=== PATIENT | female | born 1940 | race Caucasian/White ===

== ENCOUNTER 2016-06-27 02:46 | Inpatient (IN) | payer MEDICARE, OTHER ==
[~2016-06-27] VITALS: Ht 165.1 cm; Wt 93.8 kg
[2016-06-27] VITALS (634 sets, daily range): BP systolic 134–414; BP diastolic 63–81; PULSE 66–93; TEMP 97.8–98.9; O2SAT 57–100
[~2016-06-27 02:46] MED LIST: ASTRAGALUS ROOT; BILBERRY60 MG PO; CO ENZYME Q-1050 MG; D MANNOSE PO; ELITE MAGNESIUM1 TAB PO; EPA FISH OIL1000 MG PO; ESTRACE0.1 MG/GM VG; MUCINEX 60600 MG/TA1; NATURAL E400 IU PO; PAPAYA ENZYMES; POTASSIUM99 MG PO; SYNTHROID0.05 MG/TA PO; TYLENOL 325MG325 MG PO; VIT B 100; VIT B-6100 MG PO; VIT C; VIT D 3; VIT E; VITAMIN B COMPL1 T16 PO; VITAMIN B1100 MG PO; VITAMIN C500 MG PO; [UNRECOGNIZED DRUG - OTHER]
[2016-06-27 02:58] LABS: BASO % 0.2 % (0.0-2.0); EOS % 0.4 % (0-4.0); GRAN # 7.6 (1.4-6.5); GRAN % 75.8 % (42.2-75.2); HEMATOCRIT 38.6 % (37.0-47.0); HEMOGLOBIN 12.7 g/dl (12.5-16.0); LYMPH # 1.7 (1.2-3.4); LYMPH % 16.9 % (20.0-51.0); MEAN CELL VOLUME 88 fl (80.0-100.0); MEAN CORPUSCULAR HEMOGLOBIN 29 pg (27.0-31.0); MEAN CORPUSCULAR HGB CONC 33 g/dl (33.0-37.0); MEAN PLATELET VOLUME 11.1 fl (7.4-10.4); MONO # 0.6 (0.1-0.6); MONO % 6.4 % (1.7-9.3); PLATELET COUNT 216 K/mm3 (130-400); REDCELL DISTRIBUTION WIDTH-CV 14.5 % (11.5-14.5)
[2016-06-27 03:02] LABS: INR 1.1 (0.8-3.0); PROTHROMBIN TIME 12.4 SECONDS (9.7-12.8)
[2016-06-27 03:05] LABS: PARTIAL THROMBOPLASTIN TIME 26.9 SECONDS (26.0-37.0)
[2016-06-27 03:08] LABS: ADJUSTED CALCIUM 9.5 mg/dL (8.4-10.2); ALANINE AMINOTRANSFERASE 30 U/L (9-52); ALBUMIN 4.3 gm/dL (3.5-5.0); ALKALINE PHOSPHATASE 87 U/L (50-136); ANION GAP 15 mmol/L (7-16); BILIRUBIN,TOTAL 0.8 mg/dL (0.0-1.0); BLOOD UREA NITROGEN 20 mg/dL (7-17); CALCIUM 9.7 mg/dL (8.4-10.2); CARBON DIOXIDE 23 mmol/L (22-30); CHLORIDE 103 mmol/L (98-107); CREATINE KINASE 72 U/L (30-135); CREATININE, serum 1.06 mg/dL (0.52-1.25); GLUCOSE 156 mg/dL (74-106); POTASSIUM 3.9 mmol/L (3.4-5.0); SODIUM 141 mmol/L (137-145)
[2016-06-27 03:19] LABS: TROPONIN-I < 0.012 ng/mL (0.000-0.034)
[2016-06-27 04:36] LABS: MAGNESIUM 2.1 mg/dL (1.6-2.3); PHOSPHOROUS 3.2 mg/dL (2.5-4.5)
[2016-06-27] MEDS ORDERED: ARMOUR THYROID30 MG PO (05:01)
[2016-06-27] MEDS ORDERED: NATURAL POTASS595 MG PO (05:04)
[2016-06-27 06:21] LABS: PH 7 (5-8); SQUAMOUS EPITHELIAL None Seen /hpf; URINE APPEARANCE Hazy; URINE BACTERIA Rare /hpf; URINE BILIRUBIN Negative (NEGATIVE); URINE BLOOD Negative (NEGATIVE); URINE COLOR Yellow; URINE GLUCOSE Negative (NEGATIVE); URINE KETONE Trace (NEGATIVE); URINE RBC 0-2 /hpf; URINE UROBILINOGEN Negative (NEGATIVE); URINE WBC 0-2 /hpf
[2016-06-28] VITALS (795 sets, daily range): BP systolic 138–172; BP diastolic 79–99; PULSE 60–94; TEMP 98–99.8; O2SAT 47–100
[2016-06-29] VITALS (201 sets, daily range): BP systolic 156–178; BP diastolic 62–91; PULSE 60–63; TEMP 97.7–99.2; O2SAT 72–100
[2016-06-30 01:05] VITALS: BP 161/68; PULSE 61; TEMP 98.2
[2016-06-30 05:34] VITALS: BP 161/71; PULSE 53; TEMP 97.7
[2016-06-30 08:29] VITALS: BP 139/63; PULSE 95; TEMP 97.6
[2016-06-30 12:04] VITALS: BP 145/66; PULSE 60; TEMP 97.8
[2016-06-30 17:16] VITALS: BP 141/67; PULSE 58; TEMP 98.2
[2016-06-30 20:50] VITALS: BP 136/62; PULSE 61; TEMP 99.2
[2016-07-01 01:31] VITALS: BP 123/80; PULSE 66; TEMP 99.4
[2016-07-01 05:33] VITALS: BP 140/57; PULSE 62; TEMP 97.6
[2016-07-01 08:27] LABS: CALCIUM 8.7 mg/dL (8.4-10.2); CREATININE, serum 0.89 mg/dL (0.52-1.25); MAGNESIUM 2.1 mg/dL (1.6-2.3)
[2016-07-01 09:15] VITALS: BP 115/92; PULSE 59; TEMP 97.7
[2016-07-01 12:20] VITALS: BP 132/62; PULSE 50; TEMP 97.4
[2016-07-01 16:25] VITALS: BP 142/87; PULSE 59; TEMP 97
[2016-07-01 20:46] VITALS: BP 136/64; PULSE 65; TEMP 97.4
[2016-07-02 00:53] VITALS: BP 134/62; PULSE 115; TEMP 97.4
[2016-07-02 05:36] VITALS: BP 145/70; PULSE 84; TEMP 97.5
[2016-07-02 07:55] VITALS: BP 141/60; PULSE 77; TEMP 98.5
[2016-07-02 11:39] VITALS: BP 151/57; PULSE 112; TEMP 98.9
[2016-07-02 14:59] VITALS: BP 140/83; PULSE 58; TEMP 97.9
[2016-07-02 21:00] VITALS: BP 157/69; PULSE 60; TEMP 98.2
[2016-07-03] VITALS (8 sets, daily range): BP systolic 146–180; BP diastolic 54–84; PULSE 58–107; TEMP 97.6–98.9
[2016-07-03] MEDS ORDERED: ASPIRIN 32325 MG/TAB PO (09:14)
[2016-07-03] MEDS ORDERED: TYLENOL 325MG325 MG PO (09:14)
[2016-07-03] MEDS ORDERED: LIPITOR 10MG10 MG PO (09:14)
[2016-07-03] MEDS ORDERED: PRINIVIL5 MG PO (12:57)
[2016-07-04 03:51] VITALS: BP 126/87; PULSE 106; TEMP 98.7
[2016-07-04 09:00] VITALS: BP 162/91; PULSE 80; TEMP 98
[2016-07-04 12:25] VITALS: BP 150/64; PULSE 56; TEMP 98.3
[2016-07-04 14:15] VITALS: BP 164/84; PULSE 61; TEMP 98.7
== END 2016-07-04 15:30 | DRG 65 ==
LOC: COL.ER 02:46 → IMCU 03:52 → MEDICAL 03:52
PROVIDERS: Emergency Medicine; Internal Medicine; Nurse Practitioner Family
DX: I63.411 Cerebral infarction due to embolism of right middle cerebral artery (principal); G81.94 Hemiplegia, unspecified affecting left nondominant side; Z66 Do not resuscitate; R29.810 Facial weakness; I10 Essential (primary) hypertension; I25.10 Atherosclerotic heart disease of native coronary artery without angina pectoris; Z95.1 Presence of aortocoronary bypass graft; Z95.0 Presence of cardiac pacemaker; M79.7 Fibromyalgia; I48.2 Chronic atrial fibrillation
CPT/HCPCS: 99223-AI; 99232-AI; 99233-AI; 99239; A4315; J2405; J7030

== ENCOUNTER → 2016-07-06 | Outpatient (CLI) | payer MEDICARE, OTHER ==
[~2016-07-06] MED LIST changes: +ADVIL LIQUI-GE200 MG PO; +ARMOUR THYROID30 MG PO; +ASPIRIN 32325 MG/TAB PO; +KEPPRA 500MG500 MG PO; +LIPITOR 10MG10 MG PO; +NATURAL POTASS595 MG PO; +NEXIUM 20MG20 MG PO; +PAPAYA ENZYME1 TA1 PO; +PRINIVIL5 MG PO; +THE MEDICINE S200 M2 PO
== END ==
LOC: COL.RAD 12:49
DX: J18.8 Other pneumonia, unspecified organism (principal); I51.7 Cardiomegaly; Z95.1 Presence of aortocoronary bypass graft; Z95.0 Presence of cardiac pacemaker; R06.2 Wheezing

== ENCOUNTER → 2016-07-20 | Outpatient (CLI) | payer MEDICARE, OTHER | LOC: COL.RAD 13:30 | DX: J18.1 Lobar pneumonia, unspecified organism (principal); I51.7 Cardiomegaly ==

== ENCOUNTER → 2016-09-05 | Outpatient (CLI) | payer MEDICARE, OTHER | LOC: COL.RAD 13:52 | DX: M25.512 Pain in left shoulder (principal); S43.032A Inferior subluxation of left humerus, initial encounter ==

== ENCOUNTER 2016-12-25 23:30 | Emergency (ER) | payer MEDICARE, OTHER ==
[~2016-12-25] VITALS: Ht 165.1 cm; Wt 63.6 kg
[~2016-12-25 23:30] MED LIST changes: -ADVIL LIQUI-GE200 MG PO; -KEPPRA 500MG500 MG PO; -NEXIUM 20MG20 MG PO; -PAPAYA ENZYME1 TA1 PO; -THE MEDICINE S200 M2 PO
[2016-12-25 23:31] VITALS: TEMP 96.8
[2016-12-25] MEDS ORDERED: NEXIUM 20MG20 MG PO (23:53)
[2016-12-25] MEDS ORDERED: ADVIL LIQUI-GE200 MG PO (23:53)
[2016-12-25] MEDS ORDERED: VITAMIN C500 MG PO (23:57)
[2016-12-25] MEDS ORDERED: THE MEDICINE S200 M2 PO (23:57)
[2016-12-25] MEDS ORDERED: PAPAYA ENZYME1 TA1 PO (23:58)
[2016-12-26 00:12] LABS: ADJUSTED CALCIUM 9.6 mg/dL (8.4-10.2); BILIRUBIN,TOTAL 0.5 mg/dL (0.0-1.0); CALCIUM 9.6 mg/dL (8.4-10.2); CREATININE, serum 1.2 mg/dL (0.52-1.25); POTASSIUM 3.8 mmol/L (3.4-5.0); TOTAL PROTEIN 7.2 gm/dL (6.4-8.2)
[2016-12-26 00:28] LABS: PROLACTIN 83.9 ng/mL (3.0-18.6)
[2016-12-26 02:06] LABS: BASO % 0.4 % (0.0-2.0); EOS # 0.4 (0.0-0.7); GRAN # 2.8 (1.4-6.5); GRAN % 38.5 % (42.2-75.2); HEMATOCRIT 38.4 % (37.0-47.0); HEMOGLOBIN 12.7 g/dl (12.5-16.0); LYMPH # 3.4 (1.2-3.4); LYMPH % 46.9 % (20.0-51.0); MEAN CELL VOLUME 88 fl (80.0-100.0); MEAN CORPUSCULAR HEMOGLOBIN 29 pg (27.0-31.0); MEAN CORPUSCULAR HGB CONC 33 g/dl (33.0-37.0); MEAN PLATELET VOLUME 11.3 fl (7.4-10.4); MONO # 0.6 (0.1-0.6); MONO % 7.9 % (1.7-9.3); PLATELET COUNT 235 K/mm3 (130-400); RED BLOOD COUNT 4.38 M/mm3 (4.10-5.30); WHITE BLOOD COUNT 7.3 K/mm3 (4.8-10.8)
[2016-12-26] MEDS ORDERED: KEPPRA 500MG500 MG PO (03:12)
[2016-12-26 08:20] LABS: COLLECTION METHOD CLEAN CATCH
[2016-12-26 08:40] VITALS: BP 137/87; PULSE 102
[2016-12-26 08:46] LABS: MUCOUS Present /lpf; PH 5 (5-8); SQUAMOUS EPITHELIAL 0-2 /hpf; URINE APPEARANCE Clear; URINE BACTERIA None Seen /hpf; URINE BILIRUBIN Negative (NEGATIVE); URINE BLOOD Negative (NEGATIVE); URINE COLOR Yellow; URINE GLUCOSE Negative (NEGATIVE); URINE KETONE Negative (NEGATIVE); URINE LEUKOCYTE ESTERASE Negative (NEGATIVE); URINE PROTEIN(semi-quant) Negative (NEGATIVE); URINE RBC 0-2 /hpf; URINE UROBILINOGEN Negative (NEGATIVE)
== END 2016-12-26 08:45 | disposition home or self-care (01) ==
LOC: COL.ER 23:30
PROVIDERS: Emergency Medicine
DX: R56.9 Unspecified convulsions (principal); G40.909 Epilepsy, unspecified, not intractable, without status epilepticus; Z86.73 Personal history of transient ischemic attack (TIA), and cerebral infarction without residual deficits; Z86.69 Personal history of other diseases of the nervous system and sense organs
CPT/HCPCS: J1885; J1953; J7030

== ENCOUNTER 2017-11-14 14:45 | Outpatient (RCR) | payer MEDICARE, OTHER ==
[~2017-11-14 14:45] MED LIST changes: +ADVIL LIQUI-GE200 MG PO; +KEPPRA 500MG500 MG PO; +NEXIUM 20MG20 MG PO; +PAPAYA ENZYME1 TA1 PO; +THE MEDICINE S200 M2 PO
== END 2017-11-15 | disposition home or self-care (01) ==
LOC: MKS.ESL.OT
DX: I69.954 Hemiplegia and hemiparesis following unspecified cerebrovascular disease affecting left non-dominant side (principal); I65.21 Occlusion and stenosis of right carotid artery; I48.91 Unspecified atrial fibrillation
CPT/HCPCS: G8978-GP; G8979-GP; G8984-GO; G8985-GO

== ENCOUNTER 2018-01-18 15:15 | Outpatient (RCR) | payer MEDICARE, OTHER | END 2018-01-21 13:45 | disposition home or self-care (01) | LOC: MKS.ESL.OT 15:15 | DX: I69.354 Hemiplegia and hemiparesis following cerebral infarction affecting left non-dominant side (principal); I48.91 Unspecified atrial fibrillation; I65.21 Occlusion and stenosis of right carotid artery | CPT/HCPCS: G8978-GP; G8979-GP; G8980-GP; G8984-GO; G8985-GO ==

== ENCOUNTER → 2018-02-12 | Outpatient (CLI) | payer MEDICARE, OTHER | LOC: COL.RAD 09:48 | DX: I63.9 Cerebral infarction, unspecified (principal); G31.9 Degenerative disease of nervous system, unspecified; I67.82 Cerebral ischemia; I63.59 Cerebral infarction due to unspecified occlusion or stenosis of other cerebral artery ==

== ENCOUNTER 2018-07-17 11:15 | Outpatient (RCR) | payer MEDICARE, OTHER | END 2018-07-18 | disposition home or self-care (01) | LOC: MKS.ESL.OT | DX: I69.354 Hemiplegia and hemiparesis following cerebral infarction affecting left non-dominant side (principal); Z98.890 Other specified postprocedural states; Z95.0 Presence of cardiac pacemaker; Z95.1 Presence of aortocoronary bypass graft ==

== ENCOUNTER 2018-09-04 10:30 | Outpatient (RCR) | payer MEDICARE, OTHER ==
[~2018-09-04 10:30] MED LIST changes: +ASPIRIN 81M81 MG/TA2 PO; +BALANCE B-1001 TA1 PO; +CITRUCEL WITH500 MG PO; +CLARITIN 1010 MG/TAB PO; +ELIQUIS 5MG PO; -ELITE MAGNESIUM1 TAB PO; +LASIX 20MG TABL20 MG PO; +LUTEIN 15 MG-0.1 SGL PO; +MAG-OX 400400 MG/TAB PO; +METROGEL GEL45 GM TP; +NUEDEXTA 20 MG-1 CAP PO; +ROBAXIN 50500 MG/TAB PO; +TIAZAC240 MG PO; -VIT D 3; +VITAMIND3 5000 PO; +ZEBETA 5MG5 MG PO; +[UNRECOGNIZED DRUG - OTHER] NS
== END 2018-09-11 09:08 | disposition home or self-care (01) ==
LOC: MKS.ESL.PT 10:30
DX: I69.354 Hemiplegia and hemiparesis following cerebral infarction affecting left non-dominant side (principal)

== ENCOUNTER 2018-10-01 16:53 | Inpatient (IN) | payer MEDICARE, OTHER ==
[~2018-10-01] VITALS: Ht 165.1 cm; Wt 78.8 kg
[2018-10-01] MEDS ORDERED: TYLENOL PM EXTR1 TA1 PO (18:22)
[2018-10-01] MEDS ORDERED: ROBITUSSIN DM 105 ML PO (18:23)
[2018-10-01] MEDS ORDERED: NYSTATIN CREAM15 GM TP (18:24)
[2018-10-01] MEDS ORDERED: ZOFRAN 4MG T4 MG/TAB PO (18:25)
[2018-10-01] MEDS ORDERED: ALDACTONE 25MG25 M1 PO (18:26)
[2018-10-01 18:29] LABS: BASO % 0.2 % (0.0-2.0); EOS % 0.5 % (0-4.0); GRAN # 3.6 (1.4-6.5); GRAN % 59.7 % (42.2-75.2); INR 2.3 (0.8-3.0); LYMPH # 1.5 (1.2-3.4); LYMPH % 25.9 % (20.0-51.0); MEAN CELL VOLUME 72 fl (80.0-100.0); MEAN CORPUSCULAR HGB CONC 29 g/dl (33.0-37.0); MONO # 0.8 (0.1-0.6); MONO % 13.4 % (1.7-9.3); PLATELET COUNT 293 K/mm3 (130-400); PROTHROMBIN TIME 27.1 SECONDS (9.7-12.8); REDCELL DISTRIBUTION WIDTH-CV 22.9 % (11.5-14.5)
[2018-10-01 18:31] LABS: HEMATOCRIT 25.2 % (37.0-47.0); HEMOGLOBIN 7.4 g/dl (12.5-16.0); MEAN CORPUSCULAR HEMOGLOBIN 21 pg (27.0-31.0)
--- NOTE | 2018-10-01 18:50 | NUR ---
Patient to room 311 by wheelchair. Patient A&Ox3. Oriented patient to room, bed and call light. at the bedside. Assessment complete. IV CDI. No further needs expressed from patient. Call light within reach
--- NOTE | 2018-10-01 19:13 | NUR ---
Patient resting in bed, at the bedside. Denies pain, reports discomfort at rectum. States she feels that a ball is under her, nurses assessed rectum and saw no mass. Patient encouraged to shift position to take weight off buttucks. Nurses also asked if patient needed to have a BM, patient stated that she did not. IV CDI. Patients brief changed and repositioned for comfort. Dinner ordered. No further needs expressed from patient. Call light and bed alarm on.
[2018-10-01 19:31] LABS: ALBUMIN 3.4 gm/dL (3.5-5.0); BILIRUBIN,TOTAL 1.8 mg/dL (0.0-1.0); CALCIUM 8.8 mg/dL (8.4-10.2); CREATININE, serum 0.83 (0.52-1.25); MAGNESIUM 2.2 mg/dL (1.6-2.3); PHOSPHOROUS 3.2 mg/dL (2.5-4.5); POTASSIUM 3.6 mmol/L (3.4-5.0); TOTAL PROTEIN 6.5 gm/dL (6.4-8.2)
[2018-10-01 20:01] LABS: TSH w REFLEX 3.21 uIU/mL (0.465-4.680)
[2018-10-01 21:42] VITALS: BP 130/47; PULSE 59; TEMP 98.3
--- NOTE | 2018-10-01 22:00 | NUR ---
Shift assessment complete. Patient in bed. Repositioned per pt request. Denies pain. 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 Patient refusing lasix IV, notified TAMERA Melgar. Patient c/o nausea, prn zofran given. Denies further needs at this time. Will continue to monitor.
[2018-10-01 22:23] LABS: BILIRUBIN,DIRECT 0.9 mg/dL (0.0-0.4)
[2018-10-02] VITALS (13 sets, daily range): BP systolic 117–151; BP diastolic 40–83; PULSE 59–77; TEMP 97.9–98.6
[2018-10-02 06:16] LABS: BASO % 0.2 % (0.0-2.0); EOS # 0.1 (0.0-0.7); EOS % 1.2 % (0-4.0); GRAN # 2.8 (1.4-6.5); GRAN % 56.3 % (42.2-75.2); LYMPH # 1.6 (1.2-3.4); LYMPH % 31.6 % (20.0-51.0); MEAN CELL VOLUME 73 fl (80.0-100.0); MEAN CORPUSCULAR HGB CONC 28 g/dl (33.0-37.0); MEAN PLATELET VOLUME 11.9 fl (7.4-10.4); MONO # 0.5 (0.1-0.6); MONO % 10.5 % (1.7-9.3); PLATELET COUNT 263 K/mm3 (130-400); RED BLOOD COUNT 3.02 M/mm3 (4.10-5.30)
[2018-10-02 07:07] LABS: HEMATOCRIT 21.9 % (37.0-47.0); HEMOGLOBIN 6.2 g/dl (12.5-16.0); MEAN CORPUSCULAR HEMOGLOBIN 21 pg (27.0-31.0)
[2018-10-02 07:22] LABS: ALBUMIN 2.8 gm/dL (3.5-5.0); BILIRUBIN,TOTAL 1.5 mg/dL (0.0-1.0); CALCIUM 8.6 mg/dL (8.4-10.2); CREATININE, serum 0.78 (0.52-1.25); POTASSIUM 3.6 mmol/L (3.4-5.0); TOTAL PROTEIN 5.7 gm/dL (6.4-8.2)
--- NOTE | 2018-10-02 13:43 | NUR ---
Initial visit; Patient having issues and needed a nurse but was receptive to spiritual care and having Direct Mail Clerk contact her [employer] Operator to let her know that Paul is hospitalized and call her nurse to let her know of her immediate needs.
--- NOTE | 2018-10-02 13:51 | NUR ---
AMANDO met with patient and to discuss discharge planning. Patient's PCP is Dr Saunders and she obtains prescriptions from [facility]. Patient uses a transport chair for mobility but she also has a carlos walker. Patient reports she has an aid but no PT or OT. Patient does have a DPOA. Patient will be seen by PT and OT. AMANDO will continue to follow.
--- NOTE | 2018-10-02 18:00 | NUR ---
PT HAD NO COMPLICATIONS WITH BLOOD TRANSFUSION. STAYED WITH PATIENT FOR FIRST 15 MINS. NO S/S ADVERSE REACTIONS.
--- NOTE | 2018-10-02 19:30 | NUR ---
PT HAD TRAS-VAGINAL ULTRASOUND TODAY, ECHO THIS MORNING, BLOOD ADMINSTIRATION THIS AFTERNOON. PT RECIEVED 2 DOSES OF IV LASIX THIS SHIFT, ONE PRIOR TO BLOOD TRANSFUSION AND ONE AFTER. PT TOLERATED PROCEDURES WELL. HAS HAD FREQUENT VOIDING. OCCULT STOOL SAMPLE STILL PENDING DUE TO NO STOOLS. PT HAD SLIGHT BLEEDING WITH WIPING NOTED BUT VERY SCANT AMOUNT. PT HAD SOME ITCHING AROUND THE TIME OF FIRST ADMISTERATION OF IV LASIX, THIS NURSE ADMINISTERED A BENADRYL. PT HAD IN TO VISIT THROUGHOUT THE DAY.
[2018-10-02 20:27] LABS: HEMATOCRIT 27.6 % (37.0-47.0); HEMOGLOBIN 8.2 g/dl (12.5-16.0)
--- NOTE | 2018-10-02 20:30 | NUR ---
Initial shift assessment done- States is overall feeling better tonight after the unit of blood- hgb up to 8.2 at this time, Tele on, VSS, left arm flaccid, contracture, has left facial droop, left leg weak- previous stroke HX- using bedpan to void- uses call light appropriately
[2018-10-03] VITALS (8 sets, daily range): BP systolic 94–141; BP diastolic 36–74; PULSE 59–125; TEMP 97.6–98.3
--- NOTE | 2018-10-03 06:08 | NUR ---
Quiet night- has been sleeping well, using bedpan-bed changed this morning. Tele on, scd,s on this morning, VSS
[2018-10-03 06:12] LABS: BASO % 0.3 % (0.0-2.0); EOS # 0.2 (0.0-0.7); EOS % 2.8 % (0-4.0); GRAN # 3.6 (1.4-6.5); GRAN % 63.2 % (42.2-75.2); LYMPH # 1.4 (1.2-3.4); MEAN CELL VOLUME 74 fl (80.0-100.0); MEAN CORPUSCULAR HGB CONC 29 g/dl (33.0-37.0); MEAN PLATELET VOLUME 11.6 fl (7.4-10.4); MONO # 0.5 (0.1-0.6); MONO % 8.5 % (1.7-9.3); PLATELET COUNT 251 K/mm3 (130-400); REDCELL DISTRIBUTION WIDTH-CV 22.9 % (11.5-14.5)
[2018-10-03 06:22] LABS: HEMATOCRIT 26.5 % (37.0-47.0); HEMOGLOBIN 7.6 g/dl (12.5-16.0); MEAN CORPUSCULAR HEMOGLOBIN 21 pg (27.0-31.0)
[2018-10-03 06:31] LABS: ALBUMIN 3.2 gm/dL (3.5-5.0); BILIRUBIN,TOTAL 2.2 mg/dL (0.0-1.0); CALCIUM 8.5 mg/dL (8.4-10.2); CREATININE, serum 0.87 (0.52-1.25); TOTAL PROTEIN 6.4 gm/dL (6.4-8.2)
[2018-10-03 06:40] LABS: POTASSIUM 2.9 mmol/L (3.4-5.0)
[2018-10-03 11:39] LABS: RED BLOOD COUNT 3.58 M/mm3 (4.10-5.30)
[2018-10-03 16:13] LABS: HEMATOCRIT 26.7 % (37.0-47.0); HEMOGLOBIN 7.8 g/dl (12.5-16.0)
--- NOTE | 2018-10-03 19:25 | NUR ---
PT HAS BEEN DRINKING JUICE WITH POTASSIUM THROUGHOUT THE DAY TODAY PER REPLACEMENT PROTOCOL, AND AT THIS TIME HAS ONE DOSE LEFT. PT IS CURRENTLY DRINKING BOWEL PREP PT ALLERGIC TO THE [facility] IN [facility] AND IS UNABLE TO HAVE IT, DR. ZACARIAS NOTIFIED AND STATED THAT PT IS ABLE TO DRINK THE MIRALAX WITH SPRITE, APPLE JUICE AND IS ABLE TO HAVE GOLYTLE IF DESIRED. THIS DISCUSSED WITH PT AND PT AND DECIDED TO HAVE THE MIRALAX WITH SPRITE. PT WORKING IN DRINKING THIS, BIOLOGY ADJUNCT INSTRUCTOR NURSE INSTRUCTED ON ALL THIS WELL. PT STARTING TO HAVE STOOLS AT THIS TIME AND HAD SOME NOTED NAUSEA INITAILLY AND RECIEVED PRN DOSE OF ZOFRAN. NO NAUSEA NOTED AFTERWARD. PT HAS BEEN PLEASENT AND COOPERATIVE WITH CARES. NEW MED ORDERS FOR LISINOPRIL AND PO LASIX GIVEN TODAY. HGB REAMINED ABOVE 7 THIS SHIFT, LAST LEVEL WAS 7.8, PT AND PT INFORMED ON LAST LEVEL. NO ISSUES OR CONSERNS VOICED THIS NURSE EDUCATED PT AND FAMILY ON BOWEL PREP NEEDED, QUESTIONS ANSWERED APPROPITALY. HEMOCULT SAMPLE SENT TO LAB THIS SHIFT, RESULTED NEG.
--- NOTE | 2018-10-03 20:15 | NUR ---
Patient assessed at this time. Denies having pain and discomfort. Did have nausea earlier, but denies at this time. Encouraged to drink bowel prep. Continues to only take small sips at a time. Peripheral IV to left wrist flushed. Site is without redness, warmth, swelling, and pain. LS CTA. Respirations even and unlabored. Denies SOB and dyspnea. HRR. BSAx4. Abdomen soft and non-tender. Assisted to bedside commode with two assist. Able to void and have a BM. BM was small, yellow and liquid with some formed content present. Assisted back to bed as requested. Some redness to bottom present. Blanchable and intact. Voices no questions, needs, or concerns at this time. Call light is within reach.
[2018-10-04] VITALS (10 sets, daily range): BP systolic 109–130; BP diastolic 37–58; PULSE 58–63; TEMP 97.4–98.9
--- NOTE | 2018-10-04 03:02 | NUR ---
Around 2300, patient had only drank about 350 mls of her bowel prep. Stated that she did not like that it was mixed in sprite, and requested that it be mixed in water instead. customer facilities supervisor bob up more miralax for patient, and this nurse mixed it with water for patient. Has drank about 350 mls since then. Only drinking a few sips at a time. Continue to encourage patient to drink more, but states that she just cant drink very much. Has had a few loose stools, but not fully liquid yet. Will continue to encourage to drink all of bowel prep. All other fluids taken away from patient, and reminded patient that she is NPO after midnight except for the bowel prep, and voiced understanding. Resting in bed with eyes closed at this time. Call light is within reach.
--- NOTE | 2018-10-04 03:33 | NUR ---
This nurse continues to encourage patient to drink bowel prep. Did not want to sign consent for procedures until was present. Stated that she thought she was going to be able to drink the bowel prep without any problems, but was having some nausea. Given PRN Zofran at this time. Voices no other questions, needs, or concerns at this time. Call light is within reach.
--- NOTE | 2018-10-04 06:15 | NUR ---
Patient has been drinking bowel prep. Has approximately 600 mls to drink left. Currently sitting on commode drinking bowel prep as requested. Voices no questions, needs, or concerns at this time. Call light is within reach.
--- NOTE | 2018-10-04 07:50 | NUR ---
Report given to day shift nurse.
[2018-10-04 07:55] LABS: BASO % 0.3 % (0.0-2.0); EOS # 0.2 (0.0-0.7); EOS % 2.2 % (0-4.0); GRAN # 5.5 (1.4-6.5); GRAN % 71.7 % (42.2-75.2); LYMPH # 1.4 (1.2-3.4); LYMPH % 18.2 % (20.0-51.0); MEAN CELL VOLUME 71 fl (80.0-100.0); MEAN CORPUSCULAR HGB CONC 30 g/dl (33.0-37.0); MONO # 0.6 (0.1-0.6); MONO % 7.2 % (1.7-9.3); PLATELET COUNT 294 K/mm3 (130-400); RED BLOOD COUNT 4.13 M/mm3 (4.10-5.30); REDCELL DISTRIBUTION WIDTH-CV 23.9 % (11.5-14.5)
[2018-10-04 08:00] LABS: HEMATOCRIT 29.4 % (37.0-47.0); HEMOGLOBIN 8.8 g/dl (12.5-16.0); MEAN CORPUSCULAR HEMOGLOBIN 21 pg (27.0-31.0)
--- NOTE | 2018-10-04 08:05 | NUR ---
Pt up to commode, finished last cup of prep. Medications given with small sips of water. Pt is flaccid on left side and needs two assist. Denies any pain, just tired. Completed morning assessment. Breath sounds clear. Denies shortness of breath. Bottom is red, intact and blanches. Procedure will be today at 1020
[2018-10-04 08:07] LABS: ALBUMIN 3.5 gm/dL (3.5-5.0); BILIRUBIN,TOTAL 1.5 mg/dL (0.0-1.0); CALCIUM 9.2 mg/dL (8.4-10.2); CREATININE, serum 0.93 (0.52-1.25); POTASSIUM 3.3 mmol/L (3.4-5.0)
--- NOTE | 2018-10-04 09:00 | NUR ---
Consent for procedure signed, LR hanging in room.
--- NOTE | 2018-10-04 11:00 | NUR ---
pt back on floor from procedure. Post op vitals started. Pt changed and put on bedpan. Denies any other needs at this time. Will contiue to monitor. Call light in reach.
--- NOTE | 2018-10-04 12:04 | NUR ---
Called Dr. Carlson, he requested labs faxed, Sent fax
[2018-10-04 14:00] LABS: INR 1.4 (0.8-3.0); PROTHROMBIN TIME 16.6 SECONDS (9.7-12.8)
--- NOTE | 2018-10-04 14:30 | NUR ---
Pt taken down for thoracentesis.
--- NOTE | 2018-10-04 15:30 | NUR ---
Pt back in room from thoracentesis. ASking about being able to eat, called Ev and called diet order.
[2018-10-04 15:50] LABS: GLUCOSE,PLEURAL FLUID 84 mg/dL; TOTAL PROTEIN,PLEURAL FLUID 2.4 gm/dL
--- NOTE | 2018-10-04 16:46 | NUR ---
PT LYING IN BED, DENIES ANY PAIN AT THIS TIME. BREATHING EVEN AND UNLABORED. CURRENTLY RECEIVED POTASSIUM IV WITH NO COMPLAINTS. WILL CONTINUE TO MONITOR.
--- NOTE | 2018-10-04 18:00 | NUR ---
PT LYING IN BED, IV SITE EXPIRES TONIGHT. JASON POST TRIED TO GET A NEW IV AND WAS UNSUCCESSFUL. WILL WAIT UNTIL THE PLAN FOR D/C IS MADE TOMORROW AND WILL TRY AGAIN.
--- NOTE | 2018-10-04 19:00 | NUR ---
Report given to Jackie POST. PT denies any needs at this time. K+ still running.
--- NOTE | 2018-10-04 19:56 | NUR ---
PT IN BED WITH HOB ELEVATED TO 30 DEGREE ANGLE. PT DENIES PAIN OR DISCOMFORT, HAS LEFT SIDED WEAKNESS FROM PREVIOUS CVA. NO NEEDS AT THIS TIME, CALL LIGHT WITHIN REACH.
--- NOTE | 2018-10-05 02:13 | NUR ---
UNEVENTFUL NIGHT, PT SLEEPING/RESTING WELL WITH NO S/S OF PAIN OR DISCOMFORT NOTED. CALL LIGHT WITHIN REACH.
[2018-10-05 04:08] VITALS: BP 109/44; PULSE 57; TEMP 98.1
--- NOTE | 2018-10-05 07:04 | NUR ---
PT ASSISTED ONTO BEDPAN AT ABOUT 0600 AND WAS CHANGED, [facility] PERFORMED. PT DENIED ANY PAIN OR DISCOMFORT AN NO FURTHER NEEDS. CALL LIGHT WITHIN REACH. REPORT GIVEN TO ADORE POST.
[2018-10-05 08:03] VITALS: BP 117/36; PULSE 60; TEMP 98.3
--- NOTE | 2018-10-05 08:30 | NUR ---
Pt sitting up in bed eating breakfast. Denies any pain or shortness of breath. Stated she finally slept well and was able to sleep on her back. Completed morning assessment. Breathing even and unlabored, breath sounds clear. Morning meds taken one at a time with water, pt able to tolerate well. INT to LF flushes well, dressing is CDI. Left hand has small contracture and brace on left leg. Denies any needs currently, call light in reach and at bedside.
[2018-10-05 11:22] VITALS: BP 100/39; PULSE 59; TEMP 98
--- NOTE | 2018-10-05 12:59 | NUR ---
Patient reports having [facility] coming to the home.
--- NOTE | 2018-10-05 13:24 | NUR ---
Pt sitting in chair, waiting for lunch. Denies any pain or shortness of breath. Requesting for someone to take her outside. Will follow up with aid.
--- NOTE | 2018-10-05 15:15 | NUR ---
PT UP TO WHEELCHAIR, FAMILY TAKING PT AROUND THE FLOOR.
--- NOTE | 2018-10-05 16:09 | NUR ---
Pt back in room, up to commode and back into bed. Denies any pain at this time. Call light in reach.
[2018-10-05 16:56] VITALS: BP 117/41; PULSE 60; TEMP 97.9
[2018-10-05 18:04] LABS: HEMATOCRIT 30.4 % (37.0-47.0); HEMOGLOBIN 8.7 g/dl (12.5-16.0)
[2018-10-05 18:58] VITALS: BP 114/47; PULSE 59; TEMP 98.3
--- NOTE | 2018-10-05 19:01 | NUR ---
Report given to Jackie POST. Denies any needs at this time.
--- NOTE | 2018-10-05 20:18 | NUR ---
PT IN BED WITH AT 45 DEGREE ANGLE, DENIES PAIN OR DISCOMFORT. REPOSITIONED IN BED. NO FURTHER NEEDS CALL LIGHT WITHIN REACH.
[2018-10-06 00:35] VITALS: BP 119/46; PULSE 58; TEMP 98
[2018-10-06 04:37] VITALS: BP 120/49; PULSE 59; TEMP 98.7
[2018-10-06 06:46] LABS: BASO % 0.6 % (0.0-2.0); EOS # 0.3 (0.0-0.7); EOS % 6.6 % (0-4.0); GRAN # 2.5 (1.4-6.5); GRAN % 48.9 % (42.2-75.2); LYMPH # 1.8 (1.2-3.4); LYMPH % 35.5 % (20.0-51.0); MEAN CELL VOLUME 74 fl (80.0-100.0); MEAN CORPUSCULAR HGB CONC 29 g/dl (33.0-37.0); MEAN PLATELET VOLUME 10.9 fl (7.4-10.4); MONO # 0.4 (0.1-0.6); PLATELET COUNT 280 K/mm3 (130-400); RED BLOOD COUNT 3.76 M/mm3 (4.10-5.30); REDCELL DISTRIBUTION WIDTH-CV 24.8 % (11.5-14.5)
[2018-10-06 06:51] LABS: HEMATOCRIT 27.7 % (37.0-47.0); MEAN CORPUSCULAR HEMOGLOBIN 21 pg (27.0-31.0)
[2018-10-06 06:57] LABS: CALCIUM 9.1 mg/dL (8.4-10.2); CREATININE, serum 0.97 (0.52-1.25); POTASSIUM 3.9 mmol/L (3.4-5.0)
--- NOTE | 2018-10-06 07:15 | NUR ---
UNEVENTFUL NIGHT, PT WOKE UP DURING THE NIGHT TO BE CHANGED DUE TO INCONTINENCE OF URINE. PT REPOSITIONED WELL. PT DENIED PAIN OR DISCOMFORT. CALL LIGHT WITHIN REACH.
[2018-10-06 08:23] VITALS: BP 111/45; PULSE 60; TEMP 98.2
--- NOTE | 2018-10-06 09:30 | NUR ---
Pt assessment complete. Pt resting in bed upon entry. at bedside. Pt is A/O x3. Her breathing is even and unlabored on RA. Pt denies SOB. No pain at this time. No N/V. Pt ate 100% of breakfast. Pt incontinent of urine, pericare and linen change provided. Seizure precautions in place. Denies further needs, call light within reach.
[2018-10-06] MEDS ORDERED: FERRO-TIME325 MG PO (10:16)
[2018-10-06] MEDS ORDERED: PRINIVIL10 MG PO (10:17)
[2018-10-06] MEDS ORDERED: LASIX 20MG TABL20 MG PO (10:17)
--- NOTE | 2018-10-06 12:10 | NUR ---
Discharge instructions and paperwork reviewed with patient. All questions answered at this time. IV to LFA dc'd, catheter tip intact. Pt wheeled out at this time.
[2018-10-07 13:34] LABS: HEMOGLOBIN A1 96.6 % (94.5-99.5); HEMOGLOBIN A2 3.4 % (0.0-3.5); HEMOGLOBIN F <2.0 % (0.0-2.0)
== END 2018-10-06 12:22 | disposition home health service (06) | DRG 187 ==
LOC: MEDICAL 16:53
PROVIDERS: Hospitalist; Internal Medicine; Internal Medicine Gastroenterology; Physician Assistant; ADMIT Family Medicine
PROC: 0W993ZX Drainage of Right Pleural Cavity, Percutaneous Approach, Diagnostic (ICD-10-PCS; principal; 2018-10-01)
PROC: 0DJ08ZZ Inspection of Upper Intestinal Tract, Via Natural or Artificial Opening Endoscopic (ICD-10-PCS; 2018-10-04 10:15)
DX: J91.8 Pleural effusion in other conditions classified elsewhere (principal); I69.254 Hemiplegia and hemiparesis following other nontraumatic intracranial hemorrhage affecting left non-dominant side; E44.0 Moderate protein-calorie malnutrition; I48.91 Unspecified atrial fibrillation; I25.10 Atherosclerotic heart disease of native coronary artery without angina pectoris; K22.2 Esophageal obstruction; I08.3 Combined rheumatic disorders of mitral, aortic and tricuspid valves; D50.9 Iron deficiency anemia, unspecified; E78.5 Hyperlipidemia, unspecified; K21.9 Gastro-esophageal reflux disease without esophagitis; D50.0 Iron deficiency anemia secondary to blood loss (chronic); K59.00 Constipation, unspecified; E87.6 Hypokalemia; M79.7 Fibromyalgia; I10 Essential (primary) hypertension; R62.51 Failure to thrive (child); G40.909 Epilepsy, unspecified, not intractable, without status epilepticus; N93.9 Abnormal uterine and vaginal bleeding, unspecified; I27.20 Pulmonary hypertension, unspecified; Z95.0 Presence of cardiac pacemaker; Z79.01 Long term (current) use of anticoagulants; Z79.82 Long term (current) use of aspirin; Z88.0 Allergy status to penicillin; Z88.2 Allergy status to sulfonamides; Z95.1 Presence of aortocoronary bypass graft
CPT/HCPCS: 99223-AI; 99231-AI; 99232-AI; 99233-AI; 99239; A4216; J0456; J0696; J1940; J2704; J3480; J7050; J7120; P9016

== ENCOUNTER 2019-04-17 10:30 | Outpatient (RCR) | payer MEDICARE, OTHER ==
[~2019-04-17 10:30] MED LIST changes: +ALDACTONE 25MG25 M1 PO; +FERRO-TIME325 MG PO; +NYSTATIN CREAM15 GM TP; +PRINIVIL10 MG PO; +ROBITUSSIN DM 105 ML PO; +TYLENOL PM EXTR1 TA1 PO; +ZOFRAN 4MG T4 MG/TAB PO
== END 2019-04-23 | disposition still patient (30) ==
LOC: MKS.ESL.OT
DX: M21.372 Foot drop, left foot (principal); Z86.73 Personal history of transient ischemic attack (TIA), and cerebral infarction without residual deficits

== ENCOUNTER 2019-06-26 11:15 | Outpatient (RCR) | payer MEDICARE, OTHER | END 2019-07-23 | disposition home or self-care (01) | LOC: MKS.ESL.OT | DX: I69.354 Hemiplegia and hemiparesis following cerebral infarction affecting left non-dominant side (principal) ==

== ENCOUNTER 2019-11-27 14:30 | Outpatient (RCR) | payer MEDICARE, OTHER | END 2020-01-21 | disposition home or self-care (01) | LOC: MKS.ESL.OT | DX: M21.372 Foot drop, left foot (principal); Z86.73 Personal history of transient ischemic attack (TIA), and cerebral infarction without residual deficits ==

== ENCOUNTER 2020-03-18 14:30 | Outpatient (RCR) | payer MEDICARE, OTHER | END 2020-04-07 | disposition still patient (30) | LOC: MKS.ESL.PT | DX: I69.354 Hemiplegia and hemiparesis following cerebral infarction affecting left non-dominant side (principal) ==

== ENCOUNTER → 2020-04-12 | Outpatient (RCR) | payer MEDICARE, OTHER | END | disposition home or self-care (01) | LOC: MKS.ESL.PT | DX: I69.354 Hemiplegia and hemiparesis following cerebral infarction affecting left non-dominant side (principal) ==